=== PATIENT | female | born 1970 | race Caucasian/White ===

== ENCOUNTER 2017-07-14 07:10 | Emergency (ER) | payer OTHER ==
[~2017-07-14] VITALS: Ht 149.9 cm; Wt 69.4 kg
[2017-07-14 07:19] VITALS: Ht 149.9 cm; Wt 69.4 kg
[2017-07-14 08:51] VITALS: BP 140/90
== END 2017-07-14 08:51 | disposition home or self-care (01) ==
LOC: ED 07:10
DX: J20.9 Acute bronchitis, unspecified (principal); I10 Essential (primary) hypertension; F17.210 Nicotine dependence, cigarettes, uncomplicated; M54.6 Pain in thoracic spine
CPT/HCPCS: J7512; J7613; J7644

== ENCOUNTER 2017-11-12 15:33 | Emergency (ER) | payer OTHER ==
[~2017-11-12] VITALS: Ht 149.9 cm; Wt 68.0 kg
[2017-11-12 16:17] VITALS: Ht 149.9 cm; Wt 68.0 kg
[2017-11-12 17:52] VITALS: BP 149/111
== END 2017-11-12 17:52 | disposition home or self-care (01) ==
LOC: ED 15:33
DX: S83.92XA Sprain of unspecified site of left knee, initial encounter (principal); I10 Essential (primary) hypertension; W18.49XA Other slipping, tripping and stumbling without falling, initial encounter; Y93.51 Activity, roller skating (inline) and skateboarding; Y92.89 Other specified places as the place of occurrence of the external cause; Y99.8 Other external cause status
CPT/HCPCS: J2270

== ENCOUNTER 2018-08-23 22:48 | Emergency (ER) | payer OTHER ==
[~2018-08-23] VITALS: Ht 149.9 cm; Wt 73.9 kg
[2018-08-23 22:56] VITALS: BP 141/95; Ht 149.9 cm; Wt 73.9 kg
== END 2018-08-24 00:09 | disposition left against medical advice (07) ==
LOC: ED 22:48
DX: Z53.21 Procedure and treatment not carried out due to patient leaving prior to being seen by health care provider (principal)

== ENCOUNTER 2018-08-24 17:15 | Emergency (ER) | payer OTHER ==
[~2018-08-24] VITALS: Ht 149.9 cm; Wt 73.9 kg
[2018-08-24 17:18] VITALS: Ht 149.9 cm; Wt 73.9 kg
[2018-08-24 18:21] VITALS: BP 142/94
== END 2018-08-24 18:21 | disposition home or self-care (01) ==
LOC: ED 17:15
DX: L03.115 Cellulitis of right lower limb (principal); F17.210 Nicotine dependence, cigarettes, uncomplicated; I10 Essential (primary) hypertension
CPT/HCPCS: J0696